=== PATIENT | male | born 1995 | race Caucasian/White ===

== ENCOUNTER 2021-07-11 19:01 | Emergency (ER) | payer BC | END 2021-07-11 19:40 | disposition home or self-care (01) | LOC: LL.ED 19:01 | DX: S01.111A Laceration without foreign body of right eyelid and periocular area, initial encounter (principal); W26.8XXA Contact with other sharp object(s), not elsewhere classified, initial encounter | CPT/HCPCS: 12011; 99282-25; 99283 ==